=== PATIENT | female | born 1995 | race Caucasian/White ===

== ENCOUNTER 2018-03-07 22:49 | Emergency (ER) | payer OTHER, MEDICAID ==
[2018-03-07 23:06] VITALS: BP 99/81
--- NOTE | 2018-03-07 23:25 | EDM.PDOC ---
ED HPI GENERAL MEDICAL PROBLEM - General Chief Complaint: ENT Problem Stated Complaint: EAR PAIN COUGH Time Seen by Provider: 03/07/18 23:03 Source of Information: Reports: Patient, Family History Limitations: Reports: No Limitations - History of Present Illness INITIAL COMMENTS - FREE TEXT/NARRATIVE: Is a 22-year-old female. Onset Friday with a sore throat and her left ear is plugged and she has sinus drainage and she is coughing up some mild phlegm. Apparently on Friday she was running a fever though it was not documented and also on and she continues to have her symptoms so they come to the ER this evening. She complains of not being able to hear out of the left ear and of a sore throat and of sinus drainage. The cough is mostly dry though occasionally she'll cough up some phlegm. She's had no wheezing and no difficulty in breathing. She's had no abdominal pain nausea or vomiting. 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 Denies: Shortness of Breath Cardiovascular: Reports: No Symptoms Endocrine: Reports: No Symptoms GI/Abdominal: Denies: Abdominal Pain, Nausea, Vomiting : Reports: No Symptoms Musculoskeletal: Reports: No Symptoms Skin: Reports: No Symptoms Neurological: Reports: No Symptoms Psychiatric: Reports: No Symptoms Hematologic/Lymphatic: Reports: No Symptoms ED EXAM, ENT - Physical Exam Exam: See Below Exam Limited By: No Limitations General Appearance: Alert, WD/WN, No Apparent Distress Eye Exam: Bilateral Eye: Normal Inspection Ears: Normal External Exam, Other (The left eardrum is reddened, the canal does have a lot of wax in it, the right TM is normal and the canal is normal.) Nose: Clear Rhinorrhea Mouth/Throat: Normal Gums, Normal Lips, Tonsillar Erythema, Tonsillar Swelling Head: Normocephalic Neck: Supple Respiratory/Chest: No Respiratory Distress, Lungs Clear, Normal Breath Sounds. No: Wheezing Cardiovascular: Regular Rate, Rhythm, No Murmur GI/Abdominal: Soft, Non-Tender Back: Full Range of Motion Extremities: Normal Inspection, Normal Range of Motion Neurological: Alert, Oriented Psychiatric: Normal Affect, Normal Mood Skin: Warm, Dry Course - Vital Signs Last Recorded V/S: Last Vital Signs Temp 98.9 F 03/07/18 23:03 Pulse 112 H 03/07/18 23:03 Resp 18 03/07/18 23:03 BP 99/81 03/07/18 23:03 Pulse Ox 95 03/07/18 23:03 - Orders/Labs/Meds Orders: Active Orders 24 hr Category Date Time Status CULTURE STREP A CONFIRMATION [] Stat Lab 03/07/18 23:08 Results STREP SCRN A RAPID W CULT CONF [RM] Stat Lab 03/07/18 23:08 Results - Re-Assessments/Exams Free Text/Narrative Re-Assessment/Exam: 03/08/18 00:22 Spoke to the patient regarding the negative strep test. I still believe she has a acute sinusitis with a left otitis media and probably a little bit of bronchitis and pharyngitis due to the postnasal drainage. We'll place her on some antibiotics and she is to follow-up with her family doctor in a week to 10 days. Departure - Departure Time of Disposition: 00:22 Disposition: Home, Self-Care 01 Condition: Good Clinical Impression: Acute sinusitis Qualifiers: Sinusitis location: unspecified location Recurrence: non-recurrent Qualified Code(s): J01.90 - Acute sinusitis, unspecified Acute bronchitis Qualifiers: Bronchitis organism: unspecified organism Qualified Code(s): J20.9 - Acute bronchitis, unspecified Acute pharyngitis Qualifiers: Pharyngitis/tonsillitis etiology: unspecified etiology Qualified Code(s): J02.9 - Acute pharyngitis, unspecified Left otitis media Qualifiers: Otitis media type: unspecified Qualified Code(s): H66.92 - Otitis media, unspecified, left ear - Discharge Information *PRESCRIPTION DRUG MONITORING PROGRAM REVIEWED*: Not Applicable *COPY OF PRESCRIPTION DRUG MONITORING REPORT IN PATIENT STEPHANIE: Not Applicable Prescriptions: Azithromycin [Zithromax] 250 mg PO DAILY #6 tab Referrals: Allie Alexander MD [Primary Care Provider] - Forms: ED Department Discharge, ED Return to Work/School Form Additional Instructions: Lots of fluids and stay hydrated, considered taking a decongestant to help the sinus drainage, start antibiotics tomorrow when you get the prescription, rest and sleep as much as possible, consider getting a earwax removal kit from [facility] to get rid of the wax in the left ear, follow-up with your family doctor in 7-10 days for recheck, return to the ER if needed - My Orders Last 24 Hours: My Active Orders 03/07/18 23:08 CULTURE STREP A CONFIRMATION [RM] Stat STREP SCRN A RAPID W CULT CONF [] Stat - Assessment/Plan Last 24 Hours: My Active Orders 03/07/18 23:08 CULTURE STREP A CONFIRMATION [RM] Stat STREP SCRN A RAPID W CULT CONF [] Stat
== END 2018-03-08 00:36 | disposition home or self-care (01) ==
LOC: JD.ED 22:49
DX: J01.90 Acute sinusitis, unspecified (principal); J20.9 Acute bronchitis, unspecified; J02.9 Acute pharyngitis, unspecified; H66.92 Otitis media, unspecified, left ear; Z88.0 Allergy status to penicillin; Z79.899 Other long term (current) drug therapy
CPT/HCPCS: 87081; 87430; 99283